=== PATIENT | female | born 1995 | race Hispanic/Latino ===

== ENCOUNTER 2020-10-08 12:51 | Emergency (ER) | payer SELFPAY ==
[2020-10-08] MEDS ORDERED: LIDOCAINE HCL 1% 20 ML VIAL ONE (14:51)
[2020-10-08] MEDS ORDERED: ACETAMINOPHEN EXTRA STRENGTH 500 MG TABLET ONE (16:15)
== END 2020-10-08 18:15 | disposition home or self-care (01) ==
LOC: EDH 12:51
DX: S61.412A Laceration without foreign body of left hand, initial encounter (principal); S00.03XA Contusion of scalp, initial encounter; Y08.89XA Assault by other specified means, initial encounter; Y93.89 Activity, other specified; Y92.89 Other specified places as the place of occurrence of the external cause; Y99.8 Other external cause status
CPT/HCPCS: 12002; 36415; 70450; 73130; 84702